=== PATIENT | male | born 1980 | race Two or more races ===

== ENCOUNTER 2018-06-04 21:53 | Emergency (ER) | payer OTHER ==
[~2018-06-04] VITALS: Ht 170.2 cm; Wt 80.3 kg
--- NOTE | 2018-06-04 21:58 | NUR ---
DEBBI C/O "POSSIBLE ALLERGIC REACTION" AFTER EATING A BURRITO AND DRINKING MUSA MIX 9PM. NOTED WITH HIVES ON UPPER EXTREMITIES AND CHEST. PT ON MONITOR IN BED 9 WITH AT BEDSIDE. PT AOX4. WILL CONTINUE TO MONITOR.
[2018-06-04] MEDS ORDERED: methylPREDNISolone SOD SUCC 125 MG/2ML VIAL ONE (22:18)
[2018-06-04] MEDS ORDERED: diphenhydrAMINE HCL 50 MG/ML VIAL ONE (22:18)
[2018-06-04] MEDS ORDERED: FAMOTIDINE (20 MG) 20 MG TABLET ONE (22:19)
[2018-06-04] MEDS ORDERED: FAMOTIDINE (20 MG) 20 MG TABLET PO ONE (22:30)
[2018-06-04] MEDS ORDERED: IV NS 0.9% 1,000 ML BAG IV ONE (22:30)
[2018-06-04] MEDS ORDERED: methylPREDNISolone SOD SUCC 125 MG/2ML VIAL IV ONE (22:30)
[2018-06-04] MEDS ORDERED: diphenhydrAMINE HCL 50 MG/ML VIAL IV ONE (22:30)
--- NOTE | 2018-06-04 23:26 | NUR ---
PT C/O FEELING RESTLESS. BILINGUAL SPEECH THERAPIST MADE AWARE.
--- NOTE | 2018-06-04 23:34 | NUR ---
PARVEEN SARMIENTO AT BEDSIDE
[2018-06-04] MEDS ORDERED: LORAZEPAM INJ 2 MG/ML VIAL ONE (23:42)
[2018-06-05] MEDS ORDERED: LORAZEPAM INJ 2 MG/ML VIAL IV ONE
--- NOTE | 2018-06-05 00:02 | NUR ---
IV removed. Catheter intact and site benign. Pressure and 4x4 applied to site. No bleeding noted.Patient discharged to home in stable condition. Written and verbal after care instructions given. Patient verbalizes understanding of instruction. PT AMBULATORY WITH STEADY GAIT ACCOMPANIED BY .
[2018-06-05 00:04] VITALS: BP 127/84
== END 2018-06-05 00:06 | disposition home or self-care (01) ==
LOC: ER 21:54
DX: T78.1XXA Other adverse food reactions, not elsewhere classified, initial encounter (principal); Z88.0 Allergy status to penicillin; X58.XXXA Exposure to other specified factors, initial encounter
CPT/HCPCS: 96374; 96375; 99283; A4606; J1200; J2060; J2930; J7030; Z7610